=== PATIENT | male | born 1965 | race Asian ===

== ENCOUNTER 2022-08-11 04:38 | Day surgery (SDC) | payer OTHER ==
[2022-08-10 13:14] VITALS: BMI 28.7
[2022-08-11 10:38] VITALS: TEMP 97.7
[2022-08-11 11:13] VITALS: BP 100/67; PULSE 82; RESP 17
== END 2022-08-11 11:13 | disposition home or self-care (01) ==
LOC: JASU-ENDO 04:38
PROVIDERS: ATTEND Student in an Organized Health Care Education/Training Program
PROC: 0DBM8ZX Excision of Descending Colon, Via Natural or Artificial Opening Endoscopic, Diagnostic (ICD-10-PCS; 2022-08-11)
PROC: 0D5N8ZZ Destruction of Sigmoid Colon, Via Natural or Artificial Opening Endoscopic (ICD-10-PCS; principal; 2022-08-11 09:15)
DX: Z12.11 Encounter for screening for malignant neoplasm of colon (principal); D12.5 Benign neoplasm of sigmoid colon; K57.30 Diverticulosis of large intestine without perforation or abscess without bleeding; E11.9 Type 2 diabetes mellitus without complications; Z79.84 Long term (current) use of oral hypoglycemic drugs
CPT/HCPCS: 82962; 88305-TC